=== PATIENT | male | born 1985 | race African-American/Black ===

== ENCOUNTER 2016-09-28 18:19 | Emergency (ER) | payer SELFPAY ==
[2016-09-28] MEDS ORDERED: OXYCODONE-ACETAMINOPHEN 5-325 MG TABLET PO ONE ×2 (19:04→19:06)
[2016-09-28] MEDS ORDERED: ONDANSETRON 4 MG TAB.RAPDIS PO ONE (19:04)
[2016-09-28] MEDS ORDERED: DIPH/PERTUSS(ACELL)/TETANUS VAC/PF 0.5 ML SYR (>=10YO) IM ONE (19:04)
--- NOTE | 2016-09-28 19:08 | ER Document Report ---
ED Medical Screen (RME) - General Stated Complaint: LEFT ARM LACERATION Time seen by provider: 19:07 Mode of Arrival: Ambulatory Information source: Patient Notes: 31-year-old male cut his dorsal left forearm with a circular saw when it caught his jacket. His tetanus is not current. The large laceration is not bleeding at this time. He is able to move his wrist and wiggle his fingers. I have greeted and performed a rapid initial assessment of this patient. A comprehensive ED assessment, evaluation of the patient, analysis of test results , and completion of the medical decision making process will be conducted by additional ED providers. Physical Exam - Vital signs Vitals: Temp Pulse Resp BP Pulse Ox 97.8 F 58 L 24 H 132/70 H 100 09/28/16 18:43 09/28/16 18:43 09/28/16 18:43 09/28/16 18:43 09/28/16 18:43 Course - Vital Signs Vital signs: Temp Pulse Resp BP Pulse Ox 97.8 F 58 L 24 H 132/70 H 100 09/28/16 18:43 09/28/16 18:43 09/28/16 18:43 09/28/16 18:43 09/28/16 18:43
--- NOTE | 2016-09-28 19:44 | ER Document Report ---
ED General - General Chief Complaint: Arm Injury Stated Complaint: LEFT ARM LACERATION Mode of Arrival: Ambulatory Information source: Patient Notes: 31-year-old male presents with a laceration to left dorsal forearm just prior to arrival with a circular saw. Tetanus is not up-to-date. Patient is not able to move his third and fourth digits TRAVEL OUTSIDE OF THE [place] IN LAST 30 DAYS: No - HPI Onset: Just prior to arrival Onset/Duration: Sudden Quality of pain: Sharp Severity: Moderate Pain Level: 3 Associated symptoms: Other Exacerbated by: Movement Relieved by: Denies Similar symptoms previously: No Recently seen / treated by doctor: No - Related Data Allergies/Adverse Reactions: No Known Allergies Allergy (Unverified 09/28/16 19:08) Past Medical History - General Information source: Patient - Social History Smoking Status: Current Every Day Smoker Cigarette use (# per day): Yes Chew tobacco use (# tins/day): No Smoking Education Provided: No Frequency of alcohol use: Rare Drug Abuse: Marijuana Family History: Reviewed & Not Pertinent Patient has suicidal ideation: No Patient has homicidal ideation: No Renal/ Medical History: Denies: Hx Peritoneal Dialysis Review of Systems - Review of Systems Notes: REVIEW OF SYSTEMS: CONSTITUTIONAL : Denies fever, chills, or sweats. Denies recent illness. EENT: Denies eye, ear, throat, or mouth pain or symptoms. Denies nasal or sinus congestion or discharge. Denies throat, tongue, or mouth swelling or difficulty swallowing. CARDIOVASCULAR: Denies chest pain. Denies palpitations or racing or irregular heart beat. Denies ankle edema. RESPIRATORY: Denies cough, cold, or chest congestion. Denies shortness of breath, difficulty breathing, or wheezing. GASTROINTESTINAL: Denies abdominal pain or distention. Denies nausea, vomiting , or diarrhea. Denies blood in vomitus, stools, or per rectum. Denies black, tarry stools. Denies constipation. GENITOURINARY: Denies difficulty urinating, painful urination, burning, frequency, blood in urine, or discharge. MUSCULOSKELETAL: Denies back or neck pain or stiffness. Denies joint pain or swelling. SKIN: Laceration HEMATOLOGIC : Denies easy bruising or bleeding. LYMPHATIC: Denies swollen, enlarged glands. NEUROLOGICAL: Weakness of hand PSYCHIATRIC: Denies anxiety or stress. Denies depression, suicidal ideation, or homicidal ideation. ALL OTHER SYSTEMS REVIEWED AND NEGATIVE. Dictation was performed using [employer] voice recognition software PHYSICAL EXAMINATION: GENERAL: Well-appearing, well-nourished and in no acute distress. HEAD: Atraumatic, normocephalic. EYES: Pupils equal round and reactive to light, extraocular movements intact, sclera anicteric, conjunctiva are normal. ENT: Nares patent, oropharynx clear without exudates. Moist mucous membranes. NECK: Normal range of motion, supple without lymphadenopathy LUNGS: Breath sounds clear to auscultation bilaterally and equal. No wheezes rales or rhonchi. HEART: Regular rate and rhythm without murmurs ABDOMEN: Soft, nontender, nondistended abdomen. No guarding, no rebound. No masses appreciated. Musculoskeletal: Normal range of motion, no pitting or edema. No cyanosis. NEUROLOGICAL: Patient is able to flex digits is unable to extend his third and fourth digits on the left arm PSYCH: Normal mood, normal affect. SKIN: 9 cm laceration of the dorsal forearm with tendon laceration noted Physical Exam - Vital signs Vitals: Temp Pulse Resp BP Pulse Ox 97.8 F 58 L 24 H 132/70 H 100 09/28/16 18:43 09/28/16 18:43 09/28/16 18:43 09/28/16 18:43 09/28/16 18:43 Course - Re-evaluation Re-evalutation: 09/28/16 21:[address] Moreno's request area was closed after extensively cleaning it. Patient will follow up in his office for evaluation in outpatient surgery Very strict return precautions provided to patient After performing a Medical Screening Examination, I estimate there is LOW risk for OPEN FRACTURE, COMPARTMENT SYNDROME, TENDON RUPTURE, ACUTE NEUROVASCULAR INJURY, or RETAINED FOREIGN BODY, thus I consider the discharge disposition reasonable. Also, there is no evidence or peritonitis, sepsis, or toxicity. The patient and I have discussed the diagnosis and risks, and we agree with discharging home with close follow-up with the understanding that symptoms and presentations can change. We also discussed returning to the Emergency Department immediately if new or worsening symptoms occur. We have discussed the symptoms which are most concerning (e.g., changing or worsening pain, fever , numbness, weakness, cool or painful digits) that necessitate immediate return. - Vital Signs Vital signs: Temp Pulse Resp BP Pulse Ox 97.8 F 58 L 24 H 132/70 H 100 09/28/16 18:43 09/28/16 18:43 09/28/16 18:43 09/28/16 18:43 09/28/16 18:43 - Consults neel Time consulted: 20:02 Reason for consultation: 09/28/16 20:02 explained laceration of left dorsal forearm with extensor tendon injury of the 3rd and 4th digits Procedures - Immobilization Left Arm Time completed: 21:19 Pre-Proc Neuro Vasc Exam: Normal Immobilizer type: Volar splint Performed by: PCT Post-Proc Neuro Vasc Exam: Normal Alignment checked and good: Yes - Laceration/Wound Repair Left Arm Time completed: 21:10 Wound length (cm): 9 Wound's Depth, Shape: Into muscle, Irregular, Flap, Contused tissue Laceration pre-procedure: Sterile PPE donned, Betadine prep applied, Sterile drapes applied, Shur-Clens applied Anesthetic type: 1% Lidocaine Volume Anesthetic (mLs): 20 Wound explored: Clean, No foreign body removed, Contaminated Irrigated w/ Saline (mLs): 1,000 Wound Debrided: Extensive Wound Repaired With: Sutures Suture Size/Type: 4:0, Ethilon Number of Sutures: 6 Post-procedure wound care: Sterile dressing applied, Splint applied Post-procedure NV exam normal: Yes - third and fourth digits unable to extend Complications: No Discharge - Discharge Clinical Impression: Extensor tendon laceration of forearm with open wound Qualifiers: Encounter type: initial encounter Laterality: left Qualified Code(s): S56.922A - Laceration of unspecified muscles, fascia and tendons at forearm level, left arm, initial encounter Condition: Stable Disposition: HOME, SELF-CARE Instructions: Laceration Care ([facility]) Prescriptions: Cephalexin Monohydrate [Keflex 500 mg Capsule] 500 mg PO QID #40 capsule Oxycodone HCl/Acetaminophen [Percocet 5-325 mg Tablet] 1 - 2 tab PO Q4H PRN #25 tablet PRN Reason: Forms: Return to Work Referrals: JACKIE MORENO DO [ACTIVE STAFF] - Follow up tomorrow
[2016-09-28] MEDS ORDERED: HYDROMORPHONE HCL INJ/PF 2 MG/ML AMPULE IM ONE (19:58)
[2016-09-28] MEDS ORDERED: LIDOCAINE 1% INJ-PF (10 MG/ML) 30 ML SDV INJ ONE (20:21)
[2016-09-28] MEDS ORDERED: CEPHALEXIN 500 MG CAPSULE PO ONE (21:20)
[2016-09-28 21:47] VITALS: BP 116/72
== END 2016-09-28 21:45 | disposition home or self-care (01) ==
LOC: ER 18:19
PROC: 0HQEXZZ Repair Left Lower Arm Skin, External Approach (ICD-10-PCS; principal; 2016-09-28)
DX: S56.922A Laceration of unspecified muscles, fascia and tendons at forearm level, left arm, initial encounter (principal); S51.812A Laceration without foreign body of left forearm, initial encounter; W29.8XXA Contact with other powered hand tools and household machinery, initial encounter; F17.210 Nicotine dependence, cigarettes, uncomplicated
CPT/HCPCS: 99283; 96372; 90471; 73090; 90715; 12004; S0119; J3490; J1170

== ENCOUNTER 2016-10-02 13:05 | Day surgery (SDC) | payer SELFPAY ==
[2016-10-01 12:25] LABS: HEMOGLOBIN 14.7 g/dL (13.5-17.0); HGB HCT DIFFERENCE 1.1; MEAN CORPUSCULAR HEMOGLOBIN 31.7 pg (27.0-33.4); MEAN CORPUSCULAR HGB CONC 34.2 g/dL (32.0-36.0); MEAN CORPUSCULAR VOLUME 93 fl (80-97); RED BLOOD COUNT 4.65 10^6/uL (4.35-5.55); RED CELL DISTRIBUTION WIDTH 13.7 % (11.5-14.0); WHITE BLOOD COUNT 8.9 10^3/uL (4.0-10.5)
[2016-10-01 12:32] LABS: APPEARANCE,URINE SLIGHTLY-CLOUDY; BILIRUBIN,URINE NEGATIVE (NEGATIVE); GLUCOSE, URINE NEGATIVE (NEGATIVE); KETONES,URINE NEGATIVE (NEGATIVE); LEUKOCYTE ESTERASE,URINE NEGATIVE (NEGATIVE); NITRITE,URINE NEGATIVE (NEGATIVE); PROTEIN,URINE NEGATIVE (NEGATIVE); URINE SPECIFIC GRAVITY 1.031; UROBILINOGEN,URINE NEGATIVE mg/dL (<2.0)
[2016-10-01 12:53] LABS: ANION GAP 11 (5-19); BLOOD UREA NITROGEN 10 mg/dL (7-20); CALCIUM 9.8 mg/dL (8.4-10.2); CARBON DIOXIDE 29 mmol/L (22-30); CHLORIDE 101 mmol/L (98-107); CREATININE RESULT 0.89 mg/dL (0.52-1.25); GLUCOSE 85 mg/dL (75-110); POTASSIUM 4.8 mmol/L (3.6-5.0); SODIUM 140.5 mmol/L (137-145)
[~2016-10-02 13:05] MED LIST: BACITRACIN INJ 50,000 UNIT VIAL ONE; BUPIVACAINE HCL 0.5 % INJ/PF 30 ML SDV ONE; SUCCINYLCHOLINE CHLORIDE INJ 200 MG/10 ML VIAL ONE
[2016-10-02] MEDS ORDERED: MIDAZOLAM 2 MG/2 ML INJ ONE (14:11)
[2016-10-02] MEDS ORDERED: FENTANYL CITRATE INJ/PF 250 MCG/5 ML AMPULE ONE (14:12)
[2016-10-02] MEDS ORDERED: PROPOFOL INJ 200 MG/20 ML VIAL IV ONE (14:12)
[2016-10-02] MEDS ORDERED: ALBUTEROL SULFATE 0.083% NEB 2.5 MG/3 ML AMPUL NEB ONE (14:18)
[2016-10-02] MEDS ORDERED: CEFAZOLIN INJ 1 GM VIAL ONE (14:35)
--- NOTE | 2016-10-02 16:05 | Operative Report ---
Operative Report DATE OF SURGERY: 10/02/16 PREOPERATIVE DIAGNOSIS: LEFT Forearm Laceration POSTOPERATIVE DIAGNOSIS: Same OPERATION: Repair Left Index, Middle, Ring and Small Finger Extensor Tendon Laceration Zone VII, I&D w/ Excisional Debridement Left Forearm SURGEON: JACKIE MORENO ANESTHESIA: GA TISSUE REMOVED OR ALTERED: Aerobic/Anaerobic Culture COMPLICATIONS: None ESTIMATED BLOOD LOSS: Minimal PROCEDURE: Indication for above procedure: 31-year-old male who inadvertently sustained a saw injury to his left forearm. Patient was seen by the emergency room wound was cleaned and loosely closed. He followed up at my office at which point we discussed treatment options including observation versus operative intervention be given the involvement of his extensor tendons are recommended operative treatment. Risks and benefits were explained to the patient, patient verbalized understanding consented for the procedure. Procedure In Detail: Patient was seen and evaluated in the preoperative holding area. The LEFT upper extremity was initialized and marked. Patient received 2g of Ancef IV for bacterial prophylaxis. Patient was taken back to the operative room where transferred to the operative table and placed under general anesthesia. Once they were adequately anesthetized a nonsterile tourniquet was placed on the upper extremity. A surgical team debriefing was performed ensuring all instrumentation was available, the surgical procedure was discussed with possible concerns reviewed. The upper extremity was prepped with Betadine and draped in a sterile fashion. A timeout was done identifying correct patient, procedure and extremity everyone in attendance agree with this and verbalized no concerns. The extremity was elevated the tourniquet was inflated to 200 mmHg. Patient's previous stitches were removed. There was erythema and mild drainage superficially at the wound. Given the erythema along the skin edges the nonviable skin edges were excised. A repeat anaerobic cultures were obtained from the wound bed. I then copiously irrigated and wound with bacitracin mixed normal saline. Any nonviable muscle was excised. There is no deep involvement of the bone. Exploration of the forearm demonstrated disruption of the EDC index, middle, ring and small finger at the musculotendinous junction. EPL remained intact. There was also involvement of a branch off the lateral antebrachial cutaneous nerve. Given the mechanism of injury the distal aspect could not be identified and thus the end was coagulated and buried to avoid postoperative neuroma formation. The proximal stump of the EDC was identified and tagged. The distal aspect was somewhat retracted. Thus the skin incision was extended longitudinally blunt dissection was performed until the EDC tendons of the index , middle, ring and small finger were identified. I then approximated each of the index, middle, ring and small finger extensor tendons with horizontal mattress sutures utilizing 3-0 Ethibond. This successfully extended the index and ring which were deficient preoperatively. It also strengthen the extension of the index and small finger. The repairs were reinforced with 4-0 Prolene suture. The wound was once again irrigated with bacitracin mixed normal saline. A peripheral vasculature was carefully coagulated with bipolar cautery. In order to adequately close the wound I carefully undermined proximally and distally to allow appropriate excursion. The wound was closed with interrupted 3-0 nylon suture without tension. 20 mL of 0.5% Marcaine without epinephrine was injected for postoperative pain control. Was dressed with Xeroform 4 x 4's and a soft roll. Tourniquet was deflated patient had normal capillary refill and good perfusion. Patient was placed in a volar resting splint leaving the IP joints free and the MP joints in hyperextension and the wrist at 20 of extension. Sponge counts, instrument counts, needle counts counts were correct. Patient was then awoken from anesthesia. Transferred from the operating room table to the operating room stretcher. There was no intraoperative complications patient tolerated procedure well stable to PACU. Postoperative plan: Patient will follow-up in the office in 10-14 days at which point we will proceed with suture removal and set him up for occupational therapy as per zone VIII extensor tendon protocol. Patient will be started on antibiotics due to the contamination appearance of the wound.
[2016-10-02] MEDS ORDERED: ONDANSETRON HCL INJ/PF 4 MG/2 ML SDV IV PRN (16:06)
[2016-10-02] MEDS ORDERED: HYDROMORPHONE HCL INJ/PF 2 MG/ML AMPULE IV PRN (16:06)
[2016-10-02] MEDS ORDERED: OXYCODONE-ACETAMINOPHEN 5-325 MG TABLET PO PRN (16:06)
--- NOTE | 2016-10-02 16:09 | PDOC DISCHARGE SUMMARY ---
Discharge Summary (SDC) - Discharge Final Diagnosis: Left forearm extensor tendon laceration Date of Surgery: 10/02/16 Discharge Date: 10/02/16 Condition: Good Treatment or Instructions: Schedule Follow Up w/ Dr. Александр Jewell @ [facility] for Surgery to be seen in 10-14 days or as scheduled [place]: [place]: Santa Claus: Keep splint clean/dry/intact. Ice and elevate Stool softener of choice when on pain medication. Prescriptions: Doxycycline Hyclate [Vibramycin 100 mg Tablet] 100 mg PO BID #20 tablet Oxycodone HCl/Acetaminophen [Percocet 5-325 mg Tablet] 1 - 2 tab PO Q4H PRN #45 tablet PRN Reason: Discharge Diet: As Tolerated Report the Following to Your Physician Immediately: Fever over 101 Degrees, Unusual Bleeding, Redness, Swelling, Warmth, Increased Soreness
[2016-10-02] MEDS ORDERED: FENTANYL CITRATE INJ/PF 100 MCG/2 ML AMPUL IV PRN ×3 (16:30)
[2016-10-02 18:18] VITALS: BP 128/88
== END 2016-10-02 18:10 | disposition home or self-care (01) ==
LOC: OROUT 13:05
PROVIDERS: ATTEND Orthopaedic Surgery
PROC: 0LQ60ZZ Repair Left Lower Arm and Wrist Tendon, Open Approach (ICD-10-PCS; principal; 2016-10-02 15:00)
DX: S56.422A Laceration of extensor muscle, fascia and tendon of left index finger at forearm level, initial encounter (principal); S56.426A Laceration of extensor muscle, fascia and tendon of left ring finger at forearm level, initial encounter; S56.424A Laceration of extensor muscle, fascia and tendon of left middle finger at forearm level, initial encounter; S56.428A Laceration of extensor muscle, fascia and tendon of left little finger at forearm level, initial encounter; S51.812A Laceration without foreign body of left forearm, initial encounter; W31.2XXA Contact with powered woodworking and forming machines, initial encounter; F17.210 Nicotine dependence, cigarettes, uncomplicated
CPT/HCPCS: 36415; 87070; 87205; 85027; 87075; 80048; 81001; 25270 ×4; J2250; J3490; J0690; J3010; J1170; J0330; J2704; 1810